=== PATIENT | female | born 1990 | race Caucasian/White ===

== ENCOUNTER 2019-11-23 16:52 | Emergency (ER) | payer BC ==
[~2019-11-23] VITALS: Ht 180.3 cm; Wt 68.2 kg
[2019-11-23 17:04] VITALS: BP 144/87; TEMP 98.1
[2019-11-23] MEDS ORDERED: CEPHALEXIN500 M1 PO ×2 (17:25→18:17)
[2019-11-23 18:18] VITALS: PULSE 72
== END 2019-11-23 18:18 | disposition home or self-care (01) ==
LOC: COL.ER 16:52
DX: S61.512A Laceration without foreign body of left wrist, initial encounter (principal); F17.210 Nicotine dependence, cigarettes, uncomplicated; Z23 Encounter for immunization; W26.8XXA Contact with other sharp object(s), not elsewhere classified, initial encounter; Y92.009 Unspecified place in unspecified non-institutional (private) residence as the place of occurrence of the external cause